=== PATIENT | female | born 1965 | race Caucasian/White ===

== ENCOUNTER → 2023-11-19 07:51 | Outpatient (REF) | payer OTHER, SELFPAY ==
[2023-11-19 08:49] LABS: % Basophils 0.6 % (0-2); % Eosinophils 39.7 % (0-6); % Immature Granulocytes 0.1 % (0-0.5); % Lymphocytes 21.9 % (20.5-51.1); % Monocytes 4.4 % (1.7-9.3); % Neutrophils 33.3 % (42.2-75.2); Absolute Basophils 0.1 10^3/uL (0-0.2); Absolute Eosinophils 3.4 10^3/uL (0-0.7); Absolute Lymphocytes 1.9 10^3/uL (1.2-3.4); Absolute Monocytes 0.4 10^3/uL (0.1-0.6); Absolute Neutrophils 2.8 10^3/uL (1.4-6.5); Hematocrit 41.7 % (37.0-47.0); Hemoglobin 13.8 g/dL (12.0-16.0); Mean Corp Hgb Conc. 33.1 g/dL (33.0-37.0); Mean Corpuscular Hgb 29.8 pg (27.0-31.0); Mean Corpuscular Volume 90.1 fL (81.0-99.0); Nucleated Red Blood Cells % 0 %; Platelet Count 274 10^3/uL (130-400); Red Blood Cell Count 4.63 10^6/uL (4.20-5.40); White Blood Cell Count 8.4 10^3/uL (4.8-10.8)
[2023-11-19 08:52] LABS: Red Cell Dist. Width 12.8 % (11.5-14.5)
[2023-11-19 09:52] LABS: ALT (SGPT) 21 U/L (0-35); AST (SGOT) 28 U/L (14-36); Albumin 3.5 g/dl (3.5-5.0); Alkaline Phosphatase 58 U/L (38-126); Blood Urea Nitrogen 18 mg/dl (7-17); Calcium 8.9 mg/dl (8.4-10.2); Carbon Dioxide 31 mmol/L (22-30); Chloride 99 mmol/L (98-107); Glucose 88 mg/dl (70-99); HDL Cholesterol 30 mg/dl; LDL Cholesterol, Calculated 85 mg/dl; Potassium 4.4 mmol/L (3.5-5.1); Sodium 138 mmol/L (135-145); Total Bilirubin 0.5 mg/dl (0.2-1.3); Total Cholesterol 133 mg/dl (50-199); Total Protein 5.8 g/dl (6.3-8.2); Triglyceride 93 mg/dl (10-149); Very Low Density Lipoprotein 18 mg/dl (0-30); eGFR > 60.00
[2023-11-19 10:55] LABS: Folate 17.4 ng/ml (2.76-20); TSH 1.96 uIU/ml (0.47-4.68); Vitamin B12 524 pg/ml (239-931)
[2023-11-21 11:20] LABS: Vitamin D 1,25 Dihydroxy 31.5 pg/mL (19.9-79.3)
== END ==
LOC: REG 07:51
PROVIDERS: ATTENDING PHYSICIAN Family Medicine
DX: E78.5 Hyperlipidemia, unspecified (principal); E55.9 Vitamin D deficiency, unspecified
CPT/HCPCS: 36415; 80053; 80061; 82607; 82652; 82746; 84443; 85025

== ENCOUNTER → 2023-12-29 16:16 | Outpatient (REF) | payer OTHER, SELFPAY ==
[2023-12-29 12:28] LABS: Hematocrit 39.3 % (37.0-47.0); Hemoglobin 12.7 g/dL (12.0-16.0); Mean Corp Hgb Conc. 32.3 g/dL (33.0-37.0); Mean Corpuscular Volume 92.7 fL (81.0-99.0); Mean Platelet Volume 10.8 fL (7.4-10.4); Platelet Count 265 10^3/uL (130-400); Red Blood Cell Count 4.24 10^6/uL (4.20-5.40); Red Cell Dist. Width 13.6 % (11.5-14.5); White Blood Cell Count 8.5 10^3/uL (4.8-10.8)
[2023-12-29 13:26] LABS: Absolute Neutrophils -Man Diff 2.3 10^3/uL (1.4-6.5); Atypical Lymphocytes 3 %; Band Neutrophils 0 % (0-3); Eosinophils 31 % (0-6); Lymphocytes 32 % (20-51); Monocytes 6 % (2-9); Platelets Checked Yes; Segmented Neutrophils 28 % (42-75)
[2023-12-29 13:27] LABS: Normal RBC Morphology Yes; Total Cells Counted 100
[2024-01-01 12:40] LABS: IgE 737 kU/L (<=214)
== END ==
LOC: OIDL 16:16
PROVIDERS: ATTENDING PHYSICIAN Internal Medicine Hematology & Oncology
DX: D72.10 Eosinophilia, unspecified (principal)
CPT/HCPCS: 82785; 83520; 85025

== ENCOUNTER 2024-01-26 12:26 | Emergency (ER) | payer OTHER, SELFPAY ==
[2024-01-26 12:45] VITALS: BP 136/84
[2024-01-26 13:02] LABS: % Basophils 0.6 % (0-2); % Eosinophils 30.9 % (0-6); % Immature Granulocytes 0.3 % (0-0.5); % Lymphocytes 26.5 % (20.5-51.1); % Monocytes 4.1 % (1.7-9.3); % Neutrophils 37.6 % (42.2-75.2); Absolute Basophils 0.1 10^3/uL (0-0.2); Absolute Lymphocytes 2.5 10^3/uL (1.2-3.4); Absolute Monocytes 0.4 10^3/uL (0.1-0.6); Absolute Neutrophils 3.6 10^3/uL (1.4-6.5); Hematocrit 37.3 % (37.0-47.0); Hemoglobin 12.8 g/dL (12.0-16.0); Mean Corp Hgb Conc. 34.3 g/dL (33.0-37.0); Mean Corpuscular Hgb 30.8 pg (27.0-31.0); Mean Corpuscular Volume 89.9 fL (81.0-99.0); Mean Platelet Volume 9.8 fL (7.4-10.4); Nucleated Red Blood Cells % 0 %; Platelet Count 251 10^3/uL (130-400); Red Blood Cell Count 4.15 10^6/uL (4.20-5.40); Red Cell Dist. Width 13.2 % (11.5-14.5); White Blood Cell Count 9.6 10^3/uL (4.8-10.8)
[2024-01-26 13:19] LABS: ALT (SGPT) 17 U/L (0-35); AST (SGOT) 25 U/L (14-36); Albumin 4.2 g/dl (3.5-5.0); Alkaline Phosphatase 54 U/L (38-126); Blood Urea Nitrogen 20 mg/dl (7-17); Calcium 9.5 mg/dl (8.4-10.2); Carbon Dioxide 31 mmol/L (22-30); Chloride 100 mmol/L (98-107); Glucose 115 mg/dl (70-99); Potassium 4.4 mmol/L (3.5-5.1); Sodium 138 mmol/L (135-145); Total Bilirubin 0.4 mg/dl (0.2-1.3); Total Protein 6.5 g/dl (6.3-8.2); eGFR > 60.00
[2024-01-26 16:10] LABS: D-Dimer 0.36 ug/mlFEU (0.00-0.50)
[2024-01-26 16:19] LABS: Troponin I < 0.012 ng/ml
--- NOTE | 2024-01-26 16:51 | ED.GENMED ---
History of Present Illness
General
Chief Complaint: Chest Problem
Source: patient and spouse
Exam Limitations: none
Time Seen by Provider: 01/26/24 15:08
Nursing documentation reviewed up to this point in time: agreed with
Travel History
Have you had any contact with someone who has COVID-19?: No
Do you have any symptoms of coronavirus? Fever > 100 degrees, chills, cough, shortness of breath, sore throat, loss of taste or smell, muscle aches, or headache?: No
History of Present Illness
History of Present Illness:
58-year-old female presenting to the emergency department today with concerns of central chest discomfort starting last night described as achy and pressure without significant shortness of breath. Denies any recent illness changes in medications.
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 Denies any recent trauma surgery immobilization leg swelling estrogen product usage or history of blood clots.
Review of Systems
Review of Systems
Allergies reviewed?: Yes
All Other Systems: ROS reviewed and negative except as documented in HPI and ROS
Phy Exam
Physical Exam
Physical Exam:
GENERAL: Alert , in no apparent distress
EYE: pupils equal and reactive
NECK: Supple, no significant adenopathy.
ENT: o/p clr, mmm.
CARDIAC: Regular rate and rhythm .
LUNGS: Clear breath sounds bilaterally, no acute respiratory distress, no wheezes/rales/rhonchi
ABDOMEN: Soft, without focal tenderness, no r/g, no cvat
NEUROLOGICAL: Alert and oriented, no focal neuro deficits
SKIN: Warm and dry, skin intact.
MUSCULOSKELETAL: No edema, well perfused.
PSYCH: Normal and appropriate interaction.
Course
Orders/Labs/Results
Orders:
Orders
01/26/24 12:48
Electrocardiogram (*1) Urgent
Reason for Study: Chest Pain
EKG- Treatment ONCE
01/26/24 12:53
Complete Blood Count/With Diff Urgent
Comprehensive Metabolic Panel Urgent
01/26/24 15:11
Chest [CR Chest - 2 Views ] Urgent
Comment:
Reason For Exam: cp
01/26/24 15:43
D-Dimer Urgent
Troponin I Urgent
Abnormal Lab Results
01/26/24
12:53
RBC 4.15 L 10^6/uL
(4.20-5.40)
Absolute Eos (auto) 3.0 H 10^3/uL
(0-0.7)
Neutrophils % 37.6 L %
(42.2-75.2)
Eosinophils % 30.9 H %
(0-6)
Carbon Dioxide 31 H mmol/L
(22-30)
BUN 20 H mg/dl
(7-17)
Glucose 115 H mg/dl
(70-99)
01/26/24 12:53
01/26/24 12:53
Vital Signs
Initial and Last Documented VS:
Initial Vital Signs
Temp Pulse Resp BP Pulse Ox
98.0 F 70 16 136/84 98
01/26/24 12:45 01/26/24 12:45 01/26/24 12:45 01/26/24 12:45 01/26/24 12:45
Last Documented Vital Signs
Temp Pulse Resp BP Pulse Ox
98.0 F 70 16 136/84 98
01/26/24 12:45 01/26/24 12:45 01/26/24 12:45 01/26/24 12:45 01/26/24 12:45
MDM/Problems Addressed
MDM/Problems Addressed:
58-year-old female presenting to the emergency department today with concerns of chest discomfort. Here vital signs are normal patient well-appearing no acute distress normal heart lung examination labs unremarkable and troponin negative. Concern
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 Dimer was also negative making risk for PE very unlikely considering she has no additional risk factors
and normal heart rate here. X-ray without emergent findings. Patient advised for close outpatient follow-up with cardiology. Return precautions given.
*Critical Care Note
Total Time (30-74mins, 75-104mins- exclusive of procedures): Not Applicable
ED Attending Note
-
Portions of this chart may have been created with voice recognition software.� Occasional wrong word or��sound alike� substitutions may have occurred due to the inherent limitations of voice recognition software.
Discharge Plan
Departure
Patient Disposition: Home (Routine Discharge)
Date of Disposition: 01/26/24
Time of Disposition: 16:51
Patient with high blood pressure during this ER visit?: No
Condition: Good
Covid-19: Not Applicable
Discharge Problem:
Chest pain, Eosinophilia
Instructions: Chest Pain DCA Follow Up
Referrals:
Alvino Langford, DO [Family Provider] -
Activity Restrictions/Additional Instructions:
You came to the emergency department today with concerns of chest discomfort. Here you had a reassuring evaluation. Please follow closely with the statistical clerk advertising. Return to the emergency department for any worsening, new or concerning symptoms.
Please otherwise follow-up for the eosinophilia
Interventions
Interventions:
*Risk Screen - Suicide Last Done: 01/26/24 17:34
*General Assessment Last Done: 01/26/24 17:34
*Neglect/Abuse Screening Last Done: 01/26/24 17:34
ED- Fall Risk Assessment Last Done: 01/26/24 17:34
*ED COVID-19 Vaccine History Last Done: 01/26/24 12:45
*Nursing Disposition Last Done: 01/26/24 17:34
ED- Cardiac Assessment Last Done: 01/26/24 16:09
ED- Pulmonary Assessment Last Done: 01/26/24 16:09
Discharge Date and Time
Discharge Date/Time: 01/26/24 17:35
Print Language: MALTESE
== END 2024-01-26 17:35 | disposition home or self-care (01) ==
LOC: EMR 12:26
PROVIDERS: Emergency Medicine; Physician Assistant; EMERGENCY PHYSICIAN Emergency Medicine; FAMILY PHYSICIAN Family Medicine
DX: R07.89 Other chest pain (principal); D72.10 Eosinophilia, unspecified
CPT/HCPCS: 99285; 71046; 80053; 84484; 85025; 85379; 93005

== ENCOUNTER → 2024-01-30 07:34 | Outpatient (REF) | payer OTHER, SELFPAY | LOC: REG 07:34 | PROVIDERS: ATTENDING PHYSICIAN Student in an Organized Health Care Education/Training Program | DX: D72.110 Idiopathic hypereosinophilic syndrome [IHES] (principal) | CPT/HCPCS: 36415 ==

== ENCOUNTER → 2024-02-02 07:38 | Outpatient (REF) | payer OTHER, SELFPAY | LOC: REG 07:38 | PROVIDERS: ATTENDING PHYSICIAN Student in an Organized Health Care Education/Training Program | DX: D72.110 Idiopathic hypereosinophilic syndrome [IHES] (principal) | CPT/HCPCS: 86635; 87177; 87209; 87328; 87329 ==

== ENCOUNTER → 2024-03-01 11:32 | Outpatient (REF) | payer OTHER, SELFPAY ==
[2024-03-01 12:21] LABS: % Basophils 0.6 % (0-2); % Eosinophils 32.3 % (0-6); % Immature Granulocytes 0.1 % (0-0.5); % Lymphocytes 23.4 % (20.5-51.1); % Neutrophils 39.6 % (42.2-75.2); Absolute Basophils 0.1 10^3/uL (0-0.2); Absolute Eosinophils 2.9 10^3/uL (0-0.7); Absolute Lymphocytes 2.1 10^3/uL (1.2-3.4); Absolute Monocytes 0.4 10^3/uL (0.1-0.6); Absolute Neutrophils 3.6 10^3/uL (1.4-6.5); Hematocrit 39.5 % (37.0-47.0); Hemoglobin 13.1 g/dL (12.0-16.0); Mean Corp Hgb Conc. 33.2 g/dL (33.0-37.0); Mean Corpuscular Hgb 30.4 pg (27.0-31.0); Mean Corpuscular Volume 91.6 fL (81.0-99.0); Mean Platelet Volume 10.3 fL (7.4-10.4); Nucleated Red Blood Cells % 0 %; Platelet Count 242 10^3/uL (130-400); Red Blood Cell Count 4.31 10^6/uL (4.20-5.40); Red Cell Dist. Width 12.5 % (11.5-14.5)
[2024-03-02 14:44] LABS: HIV Combo Negative (Negative)
== END ==
LOC: RAD 11:32
PROVIDERS: ATTENDING PHYSICIAN Student in an Organized Health Care Education/Training Program; FAMILY PHYSICIAN Family Medicine
DX: D72.10 Eosinophilia, unspecified (principal); D72.110 Idiopathic hypereosinophilic syndrome [IHES]
CPT/HCPCS: 36415; 71260; 74177; 85025; 87177; 87209; 87328; 87329; 87389; Q9967

== ENCOUNTER → 2024-03-02 07:27 | Outpatient (REF) | payer OTHER, SELFPAY | LOC: RCS 07:27 | PROVIDERS: ATTENDING PHYSICIAN Internal Medicine Interventional Cardiology; FAMILY PHYSICIAN Family Medicine | DX: R07.89 Other chest pain (principal) | CPT/HCPCS: 93306 ==

== ENCOUNTER → 2024-03-03 07:33 | Outpatient (REF) | payer OTHER, SELFPAY | LOC: DHCBC/DCA 07:33 | PROVIDERS: ATTENDING PHYSICIAN Internal Medicine Interventional Cardiology; FAMILY PHYSICIAN Family Medicine | DX: R07.89 Other chest pain (principal) | CPT/HCPCS: 78452; 93017; A9500 ==

== ENCOUNTER → 2024-04-05 07:20 | Outpatient (REF) | payer OTHER, SELFPAY ==
[2024-04-05 07:56] LABS: % Basophils 0.8 % (0-2); % Lymphocytes 11.7 % (20.5-51.1); % Monocytes 11.7 % (1.7-9.3); % Neutrophils 69.8 % (42.2-75.2); Absolute Eosinophils 0.2 10^3/uL (0-0.7); Absolute Lymphocytes 0.3 10^3/uL (1.2-3.4); Absolute Monocytes 0.3 10^3/uL (0.1-0.6); Absolute Neutrophils 1.9 10^3/uL (1.4-6.5); Hematocrit 40.4 % (37.0-47.0); Hemoglobin 13.6 g/dL (12.0-16.0); Mean Corp Hgb Conc. 33.7 g/dL (33.0-37.0); Mean Corpuscular Hgb 30.1 pg (27.0-31.0); Mean Corpuscular Volume 89.4 fL (81.0-99.0); Mean Platelet Volume 9.9 fL (7.4-10.4); Nucleated Red Blood Cells % 0 %; Platelet Count 155 10^3/uL (130-400); Red Blood Cell Count 4.52 10^6/uL (4.20-5.40); Red Cell Dist. Width 12.1 % (11.5-14.5); White Blood Cell Count 2.7 10^3/uL (4.8-10.8)
[2024-04-07 02:50] LABS: Myeloperoxidase Antibody 7 AU/mL (0-19); Serine Protease-3, IgG 1 AU/mL (0-19)
[2024-04-07 08:21] LABS: Alternaria tenuis <0.10 kU/L (<=0.34); Aspergillus fumigatus <0.10 kU/L (<=0.34); Bermuda Grass 1.46 kU/L (<=0.34); Birch Tree 0.32 kU/L (<=0.34); Box Elder/Maple Tree 0.87 kU/L (<=0.34); Cat Epithelium/Dander <0.10 kU/L (<=0.34); Common Pigweed 0.43 kU/L (<=0.34); Common/Short Ragweed 0.81 kU/L (<=0.34); Dermatophagoides farinae 0.12 kU/L (<=0.34); Dermatophagoides pteronyssinus <0.10 kU/L (<=0.34); Dog Dander <0.10 kU/L (<=0.34); Elm Tree 0.99 kU/L (<=0.34); German Cockroach 0.56 kU/L (<=0.34); Hormodendrum <0.10 kU/L (<=0.34); IgE 403 kU/L (<=214); Mouse Epithelium <0.10 kU/L (<=0.34); Mucor racemosus <0.10 kU/L (<=0.34); Mugwort Weed 0.49 kU/L (<=0.34); Oak Tree 0.97 kU/L (<=0.34); Penicillium notatum <0.10 kU/L (<=0.34); Sheep Sorrel Weed 0.62 kU/L (<=0.34); Sycamore Tree 1.01 kU/L (<=0.34); Timothy Grass 2.07 kU/L (<=0.34); Walnut Tree 0.67 kU/L (<=0.34); White Ash Tree 0.97 kU/L (<=0.34); White Mulberry Tree 0.59 kU/L (<=0.34)
== END ==
LOC: REG 07:20
PROVIDERS: ATTENDING PHYSICIAN Internal Medicine; FAMILY PHYSICIAN Family Medicine
DX: D72.10 Eosinophilia, unspecified (principal); J31.0 Chronic rhinitis
CPT/HCPCS: 36415; 82785; 83516; 83520; 85025; 86003

== ENCOUNTER → 2024-04-12 14:35 | Outpatient (REF) | payer OTHER, SELFPAY ==
[2024-04-12 15:48] LABS: Hematocrit 38.3 % (37.0-47.0); Mean Corp Hgb Conc. 33.9 g/dL (33.0-37.0); Mean Corpuscular Hgb 29.8 pg (27.0-31.0); Mean Corpuscular Volume 87.8 fL (81.0-99.0); Mean Platelet Volume 10.3 fL (7.4-10.4); Platelet Count 260 10^3/uL (130-400); Red Blood Cell Count 4.36 10^6/uL (4.20-5.40); White Blood Cell Count 5.8 10^3/uL (4.8-10.8)
[2024-04-12 16:11] LABS: ALT (SGPT) 33 U/L (0-35); AST (SGOT) 34 U/L (14-36); Albumin 4.4 g/dl (3.5-5.0); Alkaline Phosphatase 59 U/L (38-126); Blood Urea Nitrogen 15 mg/dl (7-17); Calcium 9.4 mg/dl (8.4-10.2); Carbon Dioxide 31 mmol/L (22-30); Chloride 101 mmol/L (98-107); Glucose 93 mg/dl (70-99); Potassium 5.4 mmol/L (3.5-5.1); Sodium 138 mmol/L (135-145); Total Bilirubin 0.4 mg/dl (0.2-1.3); Total Protein 7.1 g/dl (6.3-8.2); eGFR > 60.00
[2024-04-12 16:28] LABS: FSH 94.2 mIU/ml; Free T4 1.14 ng/dl (0.78-2.19); Vitamin D, 25-OH*** 39.1 ng/mL (30-80)
[2024-04-12 16:29] LABS: Free T3 3.53 pg/ml (2.77-5.27)
[2024-04-12 16:41] LABS: TSH 1.39 uIU/ml (0.47-4.68)
[2024-04-12 16:43] LABS: Estradiol 55.3 pg/ml
[2024-04-17 14:10] LABS: Free Testosterone 0.7 pg/mL (0.6-3.8); Sex Hormone Binding Globulin 108 nmol/L (17-125); Total Testosterone,Female/Chil 9 ng/dL (9-55)
== END ==
LOC: REG 14:35
PROVIDERS: ATTENDING PHYSICIAN Nurse Practitioner Adult Health
DX: D05.80 Other specified type of carcinoma in situ of unspecified breast (principal); E88.9 Metabolic disorder, unspecified; E34.9 Endocrine disorder, unspecified; E28.39 Other primary ovarian failure; E29.1 Testicular hypofunction; E03.9 Hypothyroidism, unspecified; E55.9 Vitamin D deficiency, unspecified
CPT/HCPCS: 36415; 80053; 82306; 82670; 83001; 84270; 84402; 84403; 84439; 84443; 84481; 85027

== ENCOUNTER 2024-05-31 11:25 | Emergency (ER) | payer OTHER, SELFPAY ==
[2024-05-31 11:35] VITALS: BP 118/79
[2024-05-31 11:37] VITALS: BMI 23.5
--- NOTE | 2024-05-31 12:31 | ED.GENMED ---
History of Present Illness
General
Chief Complaint: Rabies
Source: patient
Exam Limitations: none
Time Seen by Provider: 05/31/24 11:40
Nursing documentation reviewed up to this point in time: agreed with
History of Present Illness
History of Present Illness:
Patient is a 59-year-old female presenting to the emergency department for evaluation following bat exposure last week. Patient states that she was sleeping in her daughter's room last Friday (7 days ago) when they woke up in middle of the night
and about was lying around the room. Patient denies any known bite. Patient denies any fever, chills, headache, or other symptoms
Patient has no drug allergies and denies any reactions to vaccinations in the past.
Patient has never received the rabies vaccination series in the past.
Review of Systems
Review of Systems
Allergies reviewed?: Yes
All Other Systems: ROS reviewed and negative except as documented in HPI and ROS
Phy Exam
Physical Exam
Physical Exam:
Vitals: Patient's vital signs are stable
General: Patient is well appearing, no acute distress
Skin: Warm and dry, no rashes or lesions
Head: Normocephalic, atraumatic
Throat: Protecting airway
Neck: Normal ROM, no cervical spine tenderness, no meningismus
Cardiac: Regular rate and rhythm, no murmurs.
Pulm: Normal respiratory effort, no wheezes, rales, rhonchi heard on exam.
Abdomen: Nondistended
Extremities: No evidence of cyanosis or edema
Neuro: AAOx3. Grossly intact
Psychiatric: Normal affect.
Course
Orders/Labs/Results
Orders:
Orders
05/31/24 12:07
Rabies Immune Globulin/Pf [HyperRAB] 1,403 unit IM NOW STA
05/31/24 12:30
Rabies Vaccine (Pcec)/Pf [Rabavert Rabies Vacc W-Diluent] 2.5 unit IM .ONCE ONE
Vital Signs
Initial and Last Documented VS:
Initial Vital Signs
Temp Pulse Resp BP Pulse Ox
97.4 F 66 18 118/79 96
05/31/24 11:35 05/31/24 11:35 05/31/24 11:35 05/31/24 11:35 05/31/24 11:35
Last Documented Vital Signs
Temp Pulse Resp BP Pulse Ox
97.4 F 66 18 118/79 96
05/31/24 11:35 05/31/24 11:35 05/31/24 11:35 05/31/24 11:35 05/31/24 11:35
MDM/Problems Addressed
Differential Diagnosis Includes:
Not limited to: Rabies prophylaxis
MDM/Problems Addressed:
59 year old female here for rabies prophylaxis following bat exposure 8 days ago. Patient woke up with a bat flying around her room 8 days ago. No known bite. No other concerns today. Vital signs stable. Physical exam as above. Patient is very
well-appearing, in no apparent distress. No obvious bite harish. Will proceed with rabies vaccination series. Patient did receive first dose of rabies vaccine in the emergency department. Unfortunately hospital was out of stock of the rabies
immunoglobulin. Patient instructed to return tomorrow afternoon for immunoglobulin. She will set up remaining 3 rabies vaccination doses at infusion center. Patient tolerated vaccination well. Return precautions discussed. She will return with
her daughter tomorrow for immunoglobulin. Stable for discharge.
Chronic conditions affecting care:
N/A
Acute Exacerbation and/or Progression of Chronic Illness:
N/A
*Pulse Oximetry
Patient hypoxic: no
*EKG
Interpreted by ED Provider?: NA
*Shuttle Inspector Interpretation
Rate: Shuttle Inspector- N/A
*Critical Care Note
Total Time (30-74mins, 75-104mins- exclusive of procedures): Not Applicable
ED Attending Note
-
Portions of this chart may have been created with voice recognition software.� Occasional wrong word or��sound alike� substitutions may have occurred due to the inherent limitations of voice recognition software.
Discharge Plan
Departure
Patient Disposition: Home (Routine Discharge)
Date of Disposition: 05/31/24
Time of Disposition: 13:09
Patient with high blood pressure during this ER visit?: No
Condition: Good
Covid-19: Not Applicable
Discharge Problem:
Rabies, need for prophylactic vaccination against
Instructions: Rabies
Prescriptions:
New
RabAvert (PF) 2.5 unit suspension for reconstitution
1 ml IM ONCE Qty: 3 0RF
Rx Instructions:
Inject 1ML IM on 06/03/24, 06/07/24, and 06/14/24
Stand Alone Forms: Rabies Vaccine Post Exp Dosing
Activity Restrictions/Additional Instructions:
RETURN TO THE EMERGENCY DEPARTMENT WITH ANY FEVERS, CHILLS, SIGNIFICANT REDNESS, SWELLING, OR PAIN SURROUNDING INJECTION SITE, OR ANY OTHER CONCERNS
-As discussed�you need to return to the emergency department tomorrow to receive the rabies immunoglobulin as we were out of stock today.
-You will require 3 additional dose of the rabies vaccine. They should be done on 06/03/24, 06/07/24, and 06/14/24. You should call the infusion clinic as listed on your paperwork to schedule these appointments.
Monitor your symptoms closely return to the emergency department any acute worsening/new symptoms or signs of infection
Interventions
Interventions:
*Risk Screen - Suicide Last Done: 05/31/24 11:30
*General Assessment Last Done: 05/31/24 11:30
*Neglect/Abuse Screening Last Done: 05/31/24 11:30
*Nursing Disposition Last Done: 05/31/24 13:39
Discharge Date and Time
Discharge Date/Time: 05/31/24 13:39
Print Language: NEPALESE
[2024-05-31] MEDS: RABAVERT RABIES VACC W-DILUENT 2.5 UNIT IM (13:07)
== END 2024-05-31 13:39 | disposition home or self-care (01) ==
LOC: EMR 11:25
PROVIDERS: EMERGENCY PHYSICIAN Emergency Medicine; FAMILY PHYSICIAN Family Medicine
DX: Z20.3 Contact with and (suspected) exposure to rabies (principal); Z23 Encounter for immunization
CPT/HCPCS: 99281; 90471; 90375; 90675

== ENCOUNTER 2024-06-01 14:26 | Emergency (ER) | payer OTHER, SELFPAY ==
[2024-06-01 14:29] VITALS: BP 137/74
--- NOTE | 2024-06-01 14:44 | ED.GENMED ---
History of Present Illness
<Aleida Crenshaw PA-C - Last Filed: 06/01/24 17:23>
General
Chief Complaint: Rabies
Source: patient
Exam Limitations: none
Time Seen by Provider: 06/01/24 14:32
Nursing documentation reviewed up to this point in time: agreed with
History of Present Illness
History of Present Illness:
Patient is a 59 year old presenting to the emergency department for administration of rabies immunoglobulin. Patient seen in the emergency department yesterday following bat exposure last week without any known bite. Patient did receive first dose
of rabies vaccine yesterday in our emergency department but was unable to receive immunoglobulin due to inventory in hospital. Patient was able to schedule her remaining 3 rabies vaccinations with the infusion clinic.
Patient tolerated vaccination yesterday well.
No other concerns today.
Review of Systems
<Aleida Crenshaw PA-C - Last Filed: 06/01/24 17:23>
Review of Systems
Allergies reviewed?: Yes
All Other Systems: ROS reviewed and negative except as documented in HPI and ROS
Phy Exam
<MAGEN Guerrier Last Filed: 06/01/24 17:23>
Physical Exam
Physical Exam:
Vitals: Patient's vital signs are stable. Afebrile
General: Patient is well appearing, no acute distress
Skin: Warm and dry, no rashes or lesions
Head: Normocephalic, atraumatic
Throat: Protecting airway
Cardiac: Regular rate and rhythm, no murmurs.
Pulm: No apparent respiratory distress
Abdomen: Abdomen nondistended
Extremities: No evidence of cyanosis or edema
Neuro: Grossly intact.
Psychiatric: Normal affect.
Course
<MAGEN Guerrier Last Filed: 06/01/24 17:23>
Orders/Labs/Results
Orders:
Orders
06/01/24 14:59
Rabies Immune Globulin/Pf [HyperRAB] 1,418 unit IM NOW STA
Vital Signs
Initial and Last Documented VS:
Initial Vital Signs
Temp Pulse Resp BP Pulse Ox
97.7 F 64 18 137/74 97
06/01/24 14:29 06/01/24 14:29 06/01/24 14:29 06/01/24 14:29 06/01/24 14:29
Last Documented Vital Signs
Temp Pulse Resp BP Pulse Ox
97.7 F 64 18 137/74 97
06/01/24 14:29 06/01/24 14:29 06/01/24 14:29 06/01/24 14:29 06/01/24 14:29
<Quentin Solis DO - Last Filed: 06/01/24 15:30>
Orders/Labs/Results
Orders:
Orders
06/01/24 14:59
Rabies Immune Globulin/Pf [HyperRAB] 1,418 unit IM NOW STA
Vital Signs
Initial and Last Documented VS:
Initial Vital Signs
Temp Pulse Resp BP Pulse Ox
97.7 F 64 18 137/74 97
06/01/24 14:29 06/01/24 14:29 06/01/24 14:29 06/01/24 14:29 06/01/24 14:29
Last Documented Vital Signs
Temp Pulse Resp BP Pulse Ox
97.7 F 64 18 137/74 97
06/01/24 14:29 06/01/24 14:29 06/01/24 14:29 06/01/24 14:29 06/01/24 14:29
<Aleida Crenshaw PA-C - Last Filed: 06/01/24 17:23>
MDM/Problems Addressed
Differential Diagnosis Includes:
Not limited to: Need for rabies prophylaxis
MDM/Problems Addressed:
59-year-old female presents for rabies immunoglobulin following bat exposure last week. No known bite. Patient received first dose of vaccination yesterday in emergency department although unable to receive immunoglobulin due to inventory in
hospital. Patient tolerated vaccination well. Fortunately rabies immunoglobulin is back in stock today. Patient received rabies immunoglobulin today based on 20 units/kg. Patient tolerated procedure well. Stable for discharge. Patient has
already scheduled remaining 3 rabies vaccinations with infusion clinic. Return precautions discussed.
Chronic conditions affecting care:
N/A
Acute Exacerbation and/or Progression of Chronic Illness:
N/A
<Aleida Crenshaw PA-C - Last Filed: 06/01/24 17:23>
*Pulse Oximetry
Patient hypoxic: no
*EKG
Interpreted by ED Provider?: NA
*Economics Analyst Interpretation
Rate: Economics Analyst- N/A
*Critical Care Note
Total Time (30-74mins, 75-104mins- exclusive of procedures): Not Applicable
ED Attending Note
<Aleida Crenshaw PA-C - Last Filed: 06/01/24 17:23>
-
Portions of this chart may have been created with voice recognition software.� Occasional wrong word or��sound alike� substitutions may have occurred due to the inherent limitations of voice recognition software.
<Quentin Solis DO - Last Filed: 06/01/24 15:30>
ED Attending Note
Patient seen and examined by attending physician: Yes
I performed a history and physical exam of patient and discussed management with resident, I reviewed resident's note and agree with documented findings and plan of care.: Yes
ED Attending Note:
I have reviewed and agree with his and treatment plan by Aleida Lugo. My exam revealed 89-year-old female in no acute distress. Stable to receive rabies immunoglobulin.
Discharge Plan
Departure
Patient Disposition: Home (Routine Discharge)
Date of Disposition: 06/01/24
Time of Disposition: 15:16
Patient with high blood pressure during this ER visit?: No
Condition: Good
Covid-19: Not Applicable
Discharge Problem:
Rabies, need for prophylactic vaccination against
Instructions: Rabies
Prescriptions:
No Action
RabAvert (PF) 2.5 unit suspension for reconstitution
1 ml IM ONCE Qty: 3 0RF
Rx Instructions:
Inject 1ML IM on 06/03/24, 06/07/24, and 06/14/24
Referrals:
Alvino Langford, DO [Family Provider] -
Stand Alone Forms: Rabies Vaccine Post Exp Dosing
Activity Restrictions/Additional Instructions:
RETURN TO THE EMERGENCY DEPARTMENT WITH ANY FEVERS, CHILLS, SIGNIFICANT REDNESS, SWELLING, OR PAIN SURROUNDING INJECTION SITE, OR ANY OTHER CONCERNS
-You will require 3 additional dose of the rabies vaccine. They should be done on 06/03/24, 06/07/24, and 06/14/24. Please ensure that you keep your appointments for the additional vaccinations at the infusion center.
Monitor your symptoms closely return to the emergency department any acute worsening/new symptoms or signs of infection
Interventions
Interventions:
*Risk Screen - Suicide Last Done: 06/01/24 14:29
*General Assessment Last Done: 06/01/24 14:29
*Neglect/Abuse Screening Last Done: 06/01/24 14:29
*Nursing Disposition Last Done: 06/01/24 15:32
Discharge Date and Time
Discharge Date/Time: 06/01/24 15:32
Print Language: BELARUSIAN
[2024-06-01] MEDS: HyperRAB 1418 UNIT IM (15:17)
== END 2024-06-01 15:32 | disposition home or self-care (01) ==
LOC: EMR 14:26
PROVIDERS: EMERGENCY PHYSICIAN Emergency Medicine; FAMILY PHYSICIAN Family Medicine
DX: Z20.3 Contact with and (suspected) exposure to rabies (principal); Z23 Encounter for immunization; Z29.14 Encounter for prophylactic rabies immune globulin
CPT/HCPCS: 99284; 96372; 90375

== ENCOUNTER 2024-06-07 11:36 | Outpatient (RCR) | payer OTHER, SELFPAY ==
[2024-06-03 08:50] VITALS: BP 130/66
[2024-06-03] MEDS: RABAVERT RABIES VACC W-DILUENT 2.5 UNIT IM (09:00)
[2024-06-07 11:42] VITALS: BP 112/80
[2024-06-07] MEDS: RABAVERT RABIES VACC W-DILUENT 2.5 UNIT IM (11:50)
== END 2024-06-07 13:47 | disposition home or self-care (01) ==
LOC: OID 11:36
PROVIDERS: ATTENDING PHYSICIAN Emergency Medicine
DX: Z23 Encounter for immunization (principal); Z20.3 Contact with and (suspected) exposure to rabies
CPT/HCPCS: 90471; 90675

== ENCOUNTER 2024-06-15 15:40 | Outpatient (RCR) | payer OTHER, SELFPAY ==
[2024-06-15 15:51] VITALS: BP 125/70
[2024-06-15] MEDS: RABAVERT RABIES VACC W-DILUENT 2.5 UNIT IM (15:58)
== END 2024-06-16 08:47 | disposition home or self-care (01) ==
LOC: OID 15:40
PROVIDERS: ATTENDING PHYSICIAN Emergency Medicine
DX: Z20.3 Contact with and (suspected) exposure to rabies (principal); Z23 Encounter for immunization
CPT/HCPCS: 90471; 90675

== ENCOUNTER → 2024-06-18 10:05 | Outpatient (REF) | payer OTHER, SELFPAY ==
[2024-06-18 10:29] LABS: % Basophils 0.4 % (0-2); % Eosinophils 2.2 % (0-6); % Immature Granulocytes 0.2 % (0-0.5); % Lymphocytes 36.4 % (20.5-51.1); % Monocytes 5.5 % (1.7-9.3); % Neutrophils 55.3 % (42.2-75.2); Absolute Eosinophils 0.1 10^3/uL (0-0.7); Absolute Monocytes 0.3 10^3/uL (0.1-0.6); Hematocrit 39.1 % (37.0-47.0); Hemoglobin 13.3 g/dL (12.0-16.0); Mean Corpuscular Hgb 30.4 pg (27.0-31.0); Mean Corpuscular Volume 89.3 fL (81.0-99.0); Mean Platelet Volume 9.9 fL (7.4-10.4); Nucleated Red Blood Cells % 0 %; Platelet Count 232 10^3/uL (130-400); Red Blood Cell Count 4.38 10^6/uL (4.20-5.40); Red Cell Dist. Width 13.2 % (11.5-14.5); White Blood Cell Count 5.5 10^3/uL (4.8-10.8)
[2024-06-19 23:19] LABS: IgE 166 kU/L (<=214)
== END ==
LOC: REG 10:05
PROVIDERS: ATTENDING PHYSICIAN Internal Medicine Hematology & Oncology; FAMILY PHYSICIAN Family Medicine
DX: D72.10 Eosinophilia, unspecified (principal)
CPT/HCPCS: 36415; 82785; 83520; 85025

== ENCOUNTER → 2024-11-04 12:44 | Outpatient (REF) | payer OTHER, SELFPAY | LOC: WDC 12:44 | PROVIDERS: ATTENDING PHYSICIAN Family Medicine | DX: Z90.13 Acquired absence of bilateral breasts and nipples (principal) | CPT/HCPCS: 76641 ==

== ENCOUNTER → 2024-12-14 07:39 | Outpatient (REF) | payer OTHER, SELFPAY ==
[2024-12-14 08:23] LABS: Urine Albumin 1+ (Neg - Trace); Urine Bilirubin Negative (Negative); Urine Character Clear (Clear); Urine Color Yellow; Urine Glucose Negative (Negative); Urine Ketone Negative (Negative); Urine Leukocyte 1+ (Negative); Urine Nitrite Negative (Negative); Urine Occult Blood 1+ (Negative); Urine Urobilinogen 1+ (Neg - 1+)
[2024-12-14 08:30] LABS: % Basophils 0.3 % (0-2); % Eosinophils 2.9 % (0-6); % Immature Granulocytes 0.2 % (0-0.5); % Lymphocytes 35.9 % (20.5-51.1); % Neutrophils 55.7 % (42.2-75.2); Absolute Eosinophils 0.2 10^3/uL (0-0.7); Absolute Lymphocytes 2.1 10^3/uL (1.2-3.4); Absolute Monocytes 0.3 10^3/uL (0.1-0.6); Absolute Neutrophils 3.3 10^3/uL (1.4-6.5); Hematocrit 41.2 % (37.0-47.0); Mean Corpuscular Hgb 30.7 pg (27.0-31.0); Mean Corpuscular Volume 90.4 fL (81.0-99.0); Nucleated Red Blood Cells % 0 %; Platelet Count 236 10^3/uL (130-400); Red Blood Cell Count 4.56 10^6/uL (4.20-5.40); Red Cell Dist. Width 12.9 % (11.5-14.5); White Blood Cell Count 5.9 10^3/uL (4.8-10.8)
[2024-12-14 08:37] LABS: Urine Bacteria Few (Negative); Urine Mucus Few; Urine Squamous Cell 0-2 /LPF (Few); Urine White Cell 0-2 /HPF (0-5)
[2024-12-14 09:02] LABS: ALT (SGPT) 17 U/L (0-35); AST (SGOT) 21 U/L (14-36); Albumin 4.4 g/dl (3.5-5.0); Alkaline Phosphatase 50 U/L (38-126); Blood Urea Nitrogen 21 mg/dl (7-17); Calcium 9.4 mg/dl (8.4-10.2); Carbon Dioxide 31 mmol/L (22-30); Chloride 101 mmol/L (98-107); Glucose 86 mg/dl (70-99); HDL Cholesterol 40 mg/dl; LDL Cholesterol, Calculated 103 mg/dl; Potassium 4.4 mmol/L (3.5-5.1); Sodium 138 mmol/L (135-145); Total Bilirubin 0.6 mg/dl (0.2-1.3); Total Cholesterol 155 mg/dl (50-199); Total Protein 6.8 g/dl (6.3-8.2); Triglyceride 61 mg/dl (10-149); Very Low Density Lipoprotein 12 mg/dl (0-30); eGFR > 60.00
== END ==
LOC: REG 07:39
PROVIDERS: ATTENDING PHYSICIAN Family Medicine
DX: Z00.00 Encounter for general adult medical examination without abnormal findings (principal)
CPT/HCPCS: 36415; 80053; 80061; 81003; 81015; 84443; 85025

== ENCOUNTER → 2024-12-30 08:16 | Outpatient (REF) | payer OTHER, SELFPAY ==
[2024-12-30 09:03] LABS: Urine Albumin 1+ (Neg - Trace); Urine Bilirubin Negative (Negative); Urine Character Clear (Clear); Urine Color Yellow; Urine Glucose Negative (Negative); Urine Ketone Negative (Negative); Urine Leukocyte Negative (Negative); Urine Nitrite Negative (Negative); Urine Occult Blood Negative (Negative); Urine Specific Gravity 1.025 (<1.030); Urine Urobilinogen Negative (Neg - 1+)
[2024-12-30 09:09] LABS: Urine Bacteria Few (Negative); Urine Red Blood Cell 0-2 /HPF (0-2); Urine Squamous Cell 0-2 /LPF (Few); Urine White Cell 0-2 /HPF (0-5)
== END ==
LOC: REG 08:16
PROVIDERS: ATTENDING PHYSICIAN Family Medicine
DX: R82.90 Unspecified abnormal findings in urine (principal)
CPT/HCPCS: 81003; 81015; 87086

== ENCOUNTER → 2025-01-14 10:57 | Outpatient (REF) | payer OTHER, SELFPAY | LOC: RAD 10:57 | PROVIDERS: ATTENDING PHYSICIAN Nurse Practitioner Family; FAMILY PHYSICIAN Family Medicine | DX: S29.9XXA Unspecified injury of thorax, initial encounter (principal) | CPT/HCPCS: 71111 ==

== ENCOUNTER → 2025-01-21 13:54 | Outpatient (REF) | payer OTHER, SELFPAY | LOC: MRI 3T 13:54 | PROVIDERS: ATTENDING PHYSICIAN Surgery; FAMILY PHYSICIAN Family Medicine | DX: Z98.82 Breast implant status (principal); Z80.3 Family history of malignant neoplasm of breast | CPT/HCPCS: 77049; A9585 ==

== ENCOUNTER → 2025-02-01 13:51 | Outpatient (REF) | payer OTHER, SELFPAY | LOC: HWRAD 13:51 | PROVIDERS: ATTENDING PHYSICIAN Surgery; FAMILY PHYSICIAN Family Medicine | DX: K76.9 Liver disease, unspecified (principal); R92.8 Other abnormal and inconclusive findings on diagnostic imaging of breast | CPT/HCPCS: 76700 ==

== ENCOUNTER → 2025-03-01 12:06 | Outpatient (REF) | payer OTHER, SELFPAY ==
[2025-03-01 13:24] LABS: % Basophils 0.3 % (0-2); % Immature Granulocytes 0.2 % (0-0.5); % Lymphocytes 39.6 % (20.5-51.1); % Monocytes 5.9 % (1.7-9.3); Absolute Eosinophils 0.2 10^3/uL (0-0.7); Absolute Lymphocytes 2.4 10^3/uL (1.2-3.4); Absolute Monocytes 0.4 10^3/uL (0.1-0.6); Hematocrit 40.5 % (37.0-47.0); Hemoglobin 13.9 g/dL (12.0-16.0); Mean Corp Hgb Conc. 34.3 g/dL (33.0-37.0); Mean Corpuscular Volume 90.4 fL (81.0-99.0); Mean Platelet Volume 10.1 fL (7.4-10.4); Nucleated Red Blood Cells % 0 %; Platelet Count 242 10^3/uL (130-400); Red Blood Cell Count 4.48 10^6/uL (4.20-5.40); Red Cell Dist. Width 12.5 % (11.5-14.5)
[2025-03-04 04:06] LABS: Arsenic, Blood <10.0 ug/L (<=12.0); Lead - Venous <2.0 ug/dL (<=4.9); Mercury, Blood <2.5 ug/L (<=10.0)
== END ==
LOC: REG 12:06
PROVIDERS: ATTENDING PHYSICIAN Nurse Practitioner Family; FAMILY PHYSICIAN Family Medicine
DX: Z77.011 Contact with and (suspected) exposure to lead (principal)
CPT/HCPCS: 36415; 82175; 83655; 83825; 85025

== ENCOUNTER → 2025-03-14 09:26 | Outpatient (REF) | payer OTHER, SELFPAY | LOC: RAD 09:26 | PROVIDERS: ATTENDING PHYSICIAN Obstetrics & Gynecology Gynecology; FAMILY PHYSICIAN Family Medicine | DX: Z13.820 Encounter for screening for osteoporosis (principal) | CPT/HCPCS: 77080 ==

== ENCOUNTER 2025-08-04 14:09 | Emergency (ER) | payer OTHER, SELFPAY ==
[2025-08-04 14:11] VITALS: BP 174/107
--- NOTE | 2025-08-04 16:31 | ED.GENMED ---
History of Present Illness
General
Chief Complaint: Headache
Source: patient
Exam Limitations: none
Time Seen by Provider: 08/04/25 15:57
History of Present Illness
History of Present Illness:
60yoF with a history of depression and menopause on HRT presenting for evaluation after an episode of confusion. Patient was at her friend's house this afternoon. Around 12:45 PM, she started to feel disoriented. 15 minutes later, she developed a
'ocular migraine' in which she saw flashes of light in both of her eyes. She has experiences previously and received a diagnosis of ocular migraine. Her friend asked her what she was making for dinner and patient did not remember the word broccoli
or how to make the recipe. She eventually decided to come to the ED and by the time she arrived, her symptoms started to improve. Symptoms lasted for about 2 hours total. She states she is feeling much better and confirms that she is
speaking normally. She has a mild headache currently which she thinks is related to being hungry. She denies any current visual changes, dizziness, weakness, paresthesias, chest pain, shortness of breath. She went to the gym earlier today which
is the first time in a while. She is currently weaning herself off of Lexapro and is now taking 5mg (down from 10mg).
Phy Exam
General Physical Exam
General Presentation: well appearing and no apparent distress
General Skin: warm and dry
General Habitus: normal
General Mental: alert
ENT Exam
ENT Exam: normocephalic
Eye Exam
Eye Exam: PERRL, EOMI, conjunctiva normal and visual samuel normal
Pulmonary Exam
Pulmonary Exam: no respiratory distress
Neurological Exam
Neurological Exam: alert, CN II-XII intact, no motor deficits, no sensory deficits, speech normal and other (Speech clear and fluent. Able to read NIHSS cards and name objects without issue. )
[place]enny Coma Scale
Eye Opening: Spontaneous
Verbal Response: Oriented
Motor Response: Obeys Commands
GCS Total Score: 15
Skin Exam
Skin Exam: normal color and warm/dry
Psychiatric Exam
Psychiatric Exam: normal mood/affect
Scores
NIH Stroke Score
Level of Consciousness: 0 - Alert
LOC Questions: 0-Answers both correctly
LOC Commands: 0-Performs both correctly
Best Horizontal Gaze: 0-Normal
Visual Samuel: 0=Normal, no visual loss
Facial Palsy: 0=Normal, symmetrical
Motor - Right Arm: 0=No drift 10 seconds
Motor - Left Arm: 0=No drift 10 seconds
Motor - Right Le-No drift 5 seconds
Motor - Left Le-No drift 5 seconds
Limb Ataxia: 0-Absent
Sensation: 0-Normal
Best Language: 0-No aphasia
Dysarthria: 0-Normal
Extinction and Inattention: 0-No abnormality
NIH Total Score:: 0
Course
Orders/Labs/Results
Orders:
Orders
08/04/25 16:29
Electrocardiogram (*1) Urgent
Reason for Study: TIA/Stroke
CT Head W/o Iv Contrast Urgent
Comment:
Reason For Exam: transient confusion
EKG- Treatment ONCE
08/04/25 16:43
Complete Blood Count/With Diff Urgent
Comprehensive Metabolic Panel Urgent
08/04/25 16:43
08/04/25 16:43
Vital Signs
Initial and Last Documented VS:
Initial Vital Signs
Temp Pulse Resp BP Pulse Ox
98.0 F 67 16 174/107 98
08/04/25 14:11 08/04/25 14:11 08/04/25 14:11 08/04/25 14:11 08/04/25 14:11
Last Documented Vital Signs
Temp Pulse Resp BP Pulse Ox
98.0 F 60 18 155/75 99
08/04/25 14:11 08/04/25 17:38 08/04/25 17:38 08/04/25 17:38 08/04/25 17:38
MDM/Problems Addressed
Differential Diagnosis Includes:
60yoF here after an episode of confusion that lasted about 2 hours. Had flashes of light in vision initially which felt similar to her prior ocular migraines. Asymptomatic on initial exam. She is hypertensive with otherwise normal vitals. Neuro exam
is non-focal and she is A&O. NIHH 0. Differential diagnosis includes: Complex migraine, TIA, hypertensive encephalopathy
Initial ED plan: Check CBC, CMP, EKG, and head CT.
*Pulse Oximetry
SaO2: 98
Oxygen Mode of Delivery: Room air
Patient hypoxic: no
*EKG
Interpreted by ED Provider?: Yes
EKG Intrepretation Date: 08/04/25
Heart Rate: 58
Rate: bradycardiac
Rhythm: sinus
[place]: normal axis
Interval: normal interval
QRS Pattern: normal QRS
Ischemia: no ischemia
*Critical Care Note
Total Time (30-74mins, 75-104mins- exclusive of procedures): Not Applicable
Update Note
Update Note:
Labs unremarkable including normal glucose. EKG shows normal sinus rhythm without ischemic changes. Head CT negative for acute findings. Patient remains asymptomatic on reassessment. Unclear etiology of symptoms although lower suspicion for TIA.
Patient feels comfortable for discharge. She was advised to follow-up closely with her PCP. She does have a physical scheduled in 2 weeks but will call her PCP tomorrow to see if this is able to be pushed up. Strict ED precautions reviewed and
patient discharged in stable condition.
ED Attending Note
-
Portions of this chart may have been created with voice recognition software.� Occasional wrong word or��sound alike� substitutions may have occurred due to the inherent limitations of voice recognition software.
Discharge Plan
Departure
Patient Disposition: Home (Routine Discharge)
Date of Disposition: 08/04/25
Time of Disposition: 17:49
Patient with high blood pressure during this ER visit?: Yes
Discharge Problem:
Transient confusion
Instructions: Migraines (DC)
Prescriptions:
No Action
RabAvert (PF) 2.5 unit suspension for reconstitution
1 ml IM ONCE Qty: 3 0RF
Rx Instructions:
Inject 1ML IM on 06/03/24, 06/07/24, and 06/14/24
escitalopram oxalate [Lexapro] 10 mg Tablet
10 mg PO DAILY
multivitamin Tablet
1 tab PO DAILY
cod liver oil Oil
5 ml PO DAILY
Referrals:
Alvino Langford DO [Family Provider, Family Practice]
Activity Restrictions/Additional Instructions:
Start taking a baby aspirin daily.
Please follow-up with your family doctor. Return to the ER with any new or worsening symptoms including confusion, speech disturbance, numbness, or weakness of an extremity.
Interventions
Interventions:
*Risk Screen - Suicide Last Done: 08/04/25 14:11
*General Assessment Last Done: 08/04/25 16:46
*Neglect/Abuse Screening Last Done: 08/04/25 14:11
*ED- Fall Risk Assessment Last Done: 08/04/25 16:46
*ED COVID-19 Vaccine History Last Done: 08/04/25 16:46
*ED Influenza Vaccine History Last Done: 08/04/25 16:46
*Nursing Disposition Last Done: 08/04/25 17:56
ED- Neurological Assessment Last Done: 08/04/25 16:46
Discharge Date and Time
Discharge Date/Time: 08/04/25 17:56
Print Language: [email or web address]
[2025-08-04 16:58] LABS: Hematocrit 40.9 % (37.0-47.0); Hemoglobin 14.1 g/dL (12.0-16.0); Mean Corp Hgb Conc. 34.5 g/dL (33.0-37.0); Mean Corpuscular Volume 87.8 fL (81.0-99.0); Nucleated Red Blood Cells % 0 %; Platelet Count 225 10^3/uL (130-400); Red Cell Dist. Width 12.2 % (11.5-14.5)
[2025-08-04 17:07] LABS: ALT (SGPT) 17 U/L (0-35); AST (SGOT) 26 U/L (14-36); Albumin 4.6 g/dl (3.5-5.0); Alkaline Phosphatase 44 U/L (38-126); Blood Urea Nitrogen 15 mg/dl (7-17); Calcium 9.5 mg/dl (8.4-10.2); Carbon Dioxide 30 mmol/L (22-30); Chloride 103 mmol/L (98-107); Glucose 86 mg/dl (70-99); Potassium 4.2 mmol/L (3.5-5.1); Sodium 135 mmol/L (135-145); Total Protein 7.2 g/dl (6.3-8.2); eGFR > 60.00
[2025-08-04 17:38] VITALS: BP 155/75
== END 2025-08-04 17:56 | disposition home or self-care (01) ==
LOC: EMR 14:09
PROVIDERS: Physician Assistant; EMERGENCY PHYSICIAN Emergency Medicine; FAMILY PHYSICIAN Family Medicine
DX: R40.4 Transient alteration of awareness (principal); G43.109 Migraine with aura, not intractable, without status migrainosus; F32.A Depression, unspecified; Z78.0 Asymptomatic menopausal state; Z79.890 Hormone replacement therapy
CPT/HCPCS: 99284; 70450; 80053; 85025; 93005